=== PATIENT | female | born 1990 | race Caucasian/White ===

== ENCOUNTER 2020-09-12 11:47 | Inpatient (IN) | payer BC ==
[~2020-09-12] VITALS: Ht 165.1 cm; Wt 56.8 kg
[2020-09-12] MEDS ORDERED: LOESTRIN1.5/30 21DAY (13:03)
[2020-09-12] MEDS ORDERED: MOTRIN 200200 MG/TAB PO (13:12)
[2020-09-12 13:46] LABS: HEMATOCRIT 39.8 % (37.0-47.0); HEMOGLOBIN 13.4 g/dl (12.5-16.0); MEAN CELL VOLUME 96 fl (80.0-100.0); MEAN CORPUSCULAR HEMOGLOBIN 32 pg (27.0-31.0); MEAN CORPUSCULAR HGB CONC 34 g/dl (33.0-37.0); MEAN PLATELET VOLUME 10.8 fl (7.4-10.4); PLATELET COUNT 252 K/mm3 (130-400); RED BLOOD COUNT 4.15 M/mm3 (4.10-5.30); REDCELL DISTRIBUTION WIDTH-CV 12.1 % (11.5-14.5)
[2020-09-12 14:01] LABS: ALBUMIN 3.9 gm/dL (3.5-5.0); BILIRUBIN,TOTAL 0.7 mg/dL (0.0-1.0); CALCIUM 8.9 mg/dL (8.4-10.2); CREATININE, serum 1.09 (0.52-1.25); POTASSIUM 3.3 mmol/L (3.4-5.0); TOTAL PROTEIN 7.6 gm/dL (6.4-8.2)
[2020-09-12 14:07] LABS: COLLECTION METHOD CLEAN CATCH
[2020-09-12 14:14] LABS: BAND 30 % (0-10); LYMPHOCYTE 5 % (20.0-51.0); NEUTROPHILS 61 % (42.0-75.2); TOXIC GRANULATION PRESENT
[2020-09-12 14:15] LABS: PLATELET ESTIMATE NORMAL (NORMAL)
[2020-09-12 14:31] LABS: C-REACTIVE PROTEIN 40.6 mg/dL (0.0-0.9)
[2020-09-12 14:39] LABS: MUCOUS Present /lpf; PH 5 (5-8); SQUAMOUS EPITHELIAL 0-2 /hpf; URINE APPEARANCE Cloudy; URINE BACTERIA Rare /hpf; URINE BILIRUBIN Negative (NEGATIVE); URINE BLOOD 1+ (NEGATIVE); URINE COLOR Amber; URINE GLUCOSE Negative (NEGATIVE); URINE KETONE 1+ (NEGATIVE); URINE LEUKOCYTE ESTERASE Trace (NEGATIVE); URINE NITRATE Negative (NEGATIVE); URINE PROTEIN(semi-quant) 3+ (NEGATIVE); URINE UROBILINOGEN >=4.0 mg/dL (NEGATIVE)
--- NOTE | 2020-09-12 17:15 | NUR ---
arrived on unit from emergency department per WC, alert and oriented, full assessment completed, see interventions for further info, is beginning to have shaking and chills, Temp 100.9, medicated with zofran 4mg slow IV as she begins to have nausea when t he shaking begins, denies actual pain but states has achiness all over, medicated with tylenol 650mg po for Temp and achiness, Dr Evans was also in to see patient,
[2020-09-12 17:31] VITALS: BP 116/85; PULSE 119; TEMP 100.9
--- NOTE | 2020-09-12 18:26 | NUR ---
resting in bed, shivering has stopped and she states nausea is starting to subside
--- NOTE | 2020-09-12 18:29 | NUR ---
ground water technician called to notify of her being tachycardic, heart rate in the 130s and up to 140, RACQUEL Brambila notified to possibly change high rate parameter
--- NOTE | 2020-09-12 18:53 | NUR ---
bedside shift report given to WILLIAMS Sargent
[2020-09-12 19:36] VITALS: BP 105/56; PULSE 132; TEMP 99.2
--- NOTE | 2020-09-12 20:48 | NUR ---
PT ASSISTED TO BR. GARY RODRIGUES. PT SAYS SHE FEELS BETTER THAN SHE HAS IN 6 DAYS. TAKING PO FLUIDS BETTER. POTASSIUM INFUSION CONTINUES. TO SINK- BRUSHING TEETH AND WASHING FACE.
[2020-09-12 22:08] VITALS: PULSE 150
--- NOTE | 2020-09-12 22:08 | NUR ---
TELE CALLED. SUSTAINED ST AT 150. CHECKED ON PT. PT VOMITING. SEE MAR FOR PHENERGAN GIVEN. PT WILL TAKE TYLENOL WHEN NAUSEA SUBSIDES. DECLINED TYLENOL SUSPOSITORY AT THIS TIME. WILL CONTINUE TO MONITOR TELE.
[2020-09-12 22:15] VITALS: PULSE 148
[2020-09-12 23:48] VITALS: BP 89/51; PULSE 139; TEMP 102.5; TEMP 99.2
[2020-09-13] VITALS (7 sets, daily range): BP systolic 89–120; BP diastolic 54–69; PULSE 96–134; TEMP 98–103.1
--- NOTE | 2020-09-13 05:45 | NUR ---
PT C/O CHILLING AGAIN AND NAUSEA. SEE MAR FOR PHENERGAN AND TYLENOL. TELE REVEALS HR LOW 100'S.
[2020-09-13 06:42] LABS: MEAN CELL VOLUME 97 fl (80.0-100.0); MEAN CORPUSCULAR HGB CONC 33 g/dl (33.0-37.0); MEAN PLATELET VOLUME 10.9 fl (7.4-10.4); PLATELET COUNT 233 K/mm3 (130-400); RED BLOOD COUNT 3.44 M/mm3 (4.10-5.30); REDCELL DISTRIBUTION WIDTH-CV 12.5 % (11.5-14.5)
[2020-09-13 06:51] LABS: HEMATOCRIT 33.3 % (37.0-47.0); HEMOGLOBIN 10.9 g/dl (12.5-16.0); MEAN CORPUSCULAR HEMOGLOBIN 32 pg (27.0-31.0)
[2020-09-13 06:57] LABS: CALCIUM 7.7 mg/dL (8.4-10.2); CREATININE, serum 0.84 (0.52-1.25); POTASSIUM 4.1 mmol/L (3.4-5.0)
--- NOTE | 2020-09-13 06:59 | NUR ---
bedside shift report received from WILLIAMS Sargent
[2020-09-13 07:25] LABS: C-REACTIVE PROTEIN 38.7 mg/dL (0.0-0.9)
[2020-09-13 07:30] LABS: BAND 18 % (0-10); LYMPHOCYTE 6 % (20.0-51.0); NEUTROPHILS 75 % (42.0-75.2); PLATELET ESTIMATE NORMAL (NORMAL)
[2020-09-13 07:31] LABS: HYPOCHROMIA 1+
--- NOTE | 2020-09-13 07:50 | NUR ---
student nurse Chas asssiting with her care, has completed vital signs and Temp 102, was given Tylenol at shift change, will monitor, states she is tired and is trying to sleep
--- NOTE | 2020-09-13 08:51 | NUR ---
Patient is resting comfortably in bed. Shift assessment completed. Currently denies pain. IVF infusing per order. Call light within reach.
--- NOTE | 2020-09-13 09:20 | NUR ---
awake resting in bed, just states she is still tired, informed her when she was more awake and wanted to get cleaned up to let us know, verbalizes understanding, full assessment completed, have reviewed assessment completed by student nurse and in agreement with her assessment, denies pain or needs
--- NOTE | 2020-09-13 10:30 | NUR ---
resting in bed talking on phone, meagan needs, remains on telemetry and remains tachycardic but is down into the 110s
--- NOTE | 2020-09-13 10:56 | NUR ---
First visit from the elevated motorman. No needs right now.
--- NOTE | 2020-09-13 12:00 | NUR ---
diet changed to general and explained this to her, verbalizes understanding and will review menu
--- NOTE | 2020-09-13 13:00 | NUR ---
called to room by patient and she states she just isn't feeling good again, is having some shivering and stomach upset, Temp 99.3, spoke with student nurse and she administered zofran 4mg slow IV
--- NOTE | 2020-09-13 13:06 | NUR ---
Plan to return home with spouse Mike [phone]. Patient reports that that she resides in [place] with her and has her mother Chica Chang coming into town to support her with her postcare [phone]. Patient indicated that she does not have a PCP but is okay with a referral. Prefers [facility] for RX. Patient reports that she does not have any DME use or DPOA and it would default to her spouse. Patient reports that she has transportation home. Patient does not anticipate any additional needs. Will continue to follow for care. Educated on community supports.
--- NOTE | 2020-09-13 13:26 | NUR ---
bedside shift report given to WILLIAMS Erwin
--- NOTE | 2020-09-13 14:03 | NUR ---
Primary nurse was assisted with [phone] patient care by [facility] student Chas Castro and [facility] instructor Eloise Paul RN-.
--- NOTE | 2020-09-13 15:25 | NUR ---
PT CALLED SAYING SHE WAS HOT AND FELT HER FEVER WAS BACK. WHEN CHECKED IT WAS 103.1 PT WAS GIVEN 650 APAP AT 1520 AND WILL RECHECK IN AN HOUR. WET RAG GIVEN TO COOL OFF AND PT ASSISTED TO BATHROOM.
--- NOTE | 2020-09-13 18:02 | NUR ---
PT'S TEMPERATURE IS DOWN TO 99.7 AT 1730. PT ABLE TO EAT ICE CREAM AND JELLO AND DRINKING WATER WELL. PT REPORTS FATIGUE BUT NOT PAIN. WAS HESITANT TO RECEIVE LOVENOX INJ BUT SAID IT DIDN'T HURT BAD THIS TIME. DISCUSSED WITH MID LEVEL STARTING SCHEDULED APAP TO CONTROL FEVER. WANTS TO BE ABLE TO SEE THE TREND AND IF NECESSARY START ON DIFFERENT ABX.
--- NOTE | 2020-09-13 20:00 | NUR ---
PT C/O CHILLING AND MILD NAUSEA AGAIN. CHECKED TEMP 99.2. SEE MAR FOR TYLENOL AND ZOFRAN GIVEN.
--- NOTE | 2020-09-13 21:10 | NUR ---
TELEMETRY CALLED. HR RATE 130'S. PT HAD JUST GOT UP TO BR. NO DISTRESS.
[2020-09-14] VITALS (9 sets, daily range): BP systolic 103–123; BP diastolic 66–85; PULSE 94–130; TEMP 99.3–102.9
--- NOTE | 2020-09-14 02:35 | NUR ---
TEMP 102.0 DOWN FROM 102.9. BLOOD CULTURES PENDING RESULT THAT WAS OBTAINED FROM 09/12/20. TOOK 1 BLANKET OFF PT FOR NOW.
[2020-09-14 06:26] LABS: MEAN CELL VOLUME 95 fl (80.0-100.0); MEAN CORPUSCULAR HEMOGLOBIN 32 pg (27.0-31.0); MEAN CORPUSCULAR HGB CONC 34 g/dl (33.0-37.0); MEAN PLATELET VOLUME 10.7 fl (7.4-10.4); PLATELET COUNT 287 K/mm3 (130-400); RED BLOOD COUNT 3.44 M/mm3 (4.10-5.30); REDCELL DISTRIBUTION WIDTH-CV 12.5 % (11.5-14.5)
[2020-09-14 06:31] LABS: HEMATOCRIT 32.5 % (37.0-47.0)
[2020-09-14 06:35] LABS: CALCIUM 7.9 mg/dL (8.4-10.2); CREATININE, serum 0.83 (0.52-1.25); POTASSIUM 3.2 mmol/L (3.4-5.0)
[2020-09-14 07:15] LABS: BAND 10 % (0-10); LYMPHOCYTE 6 % (20.0-51.0); NEUTROPHILS 80 % (42.0-75.2); PLATELET ESTIMATE NORMAL (NORMAL)
--- NOTE | 2020-09-14 07:36 | NUR ---
RACQUEL LAMB CALLED AND NOTIFIED THAT THE PATIENTS TEMPERATURE THIS MORNING IS 102.9 AND HER HEART RATE IS 123. STUDENT NURSE ELIESER IS ADMINISTERING TYLENOL FOR FEVER.
--- NOTE | 2020-09-14 08:58 | NUR ---
STUDENT NURSE REPORTS THAT THE PATIENTS TEMPERATURE IS AT 100.7 WHEN RECHECKED AFTER TYLENOL WAS ADMINISTERED THIS MORNING. HOSPITALIST IN WITH PATIENT AT THIS TIME.
--- NOTE | 2020-09-14 10:15 | NUR ---
TAKING OVER PATIENT'S CARE. RECEIVED REPORT FROM WILLIAMS RAMIREZ
--- NOTE | 2020-09-14 14:01 | NUR ---
Primary nurse was assisted with [phone] patient care by [facility] [employer] student Chas Ross and [employer] [employer] instructor Eloise Paul RN-.
--- NOTE | 2020-09-14 16:45 | NUR ---
PATIENT STILL FEELING VERY HOT AFTER RECEIVING TYLENOL. NOTED LOW GRADE TEMP OF 99. APPLIED ICE PACKS TO NECK. PATIENT GIVEN COLD SPRITE. RESTING IN BED. WILL MONITOR.
--- NOTE | 2020-09-14 18:30 | NUR ---
PATIENT CALLED OUT AND REPORTS FEELS SOA WHEN AMBULATING TO BATHROOM. PATIENT REPORTES TELLING THIS AM. PATIENT ALSO EXPERIENCING NOSE BLEED WHICH SHE REPORTS SHE NEVER HAS. HOSPITALIST NOTIFIED.
[2020-09-15] VITALS (8 sets, daily range): BP systolic 112–151; BP diastolic 59–82; PULSE 76–100; TEMP 98–99.7
--- NOTE | 2020-09-15 05:20 | NUR ---
PT RESTING IN BED WITH IV FLUIDS OF NS INFUSING AT 100ML/HR IN R UPPER FA. LAST BAG OF K+ INFUSING AT PRESENT. CALL LIGHT IN REACH.
--- NOTE | 2020-09-15 05:31 | NUR ---
PT RESTING IN BED. IV FLUIDS OF NS INFUSING AT 100ML/HR. TO RADIOLOGY PER W/C FOR CT TO RULE OUT PE. IS TO ROOM. PULLS AROUND 500 PER RT. O2 WAS PLACED AFTER SATS DROPPED TO 85-87%. ON 2 1/2L PER NC AND SATS IN THE MID TO UPPER 90'S. TELE WITH TACHYCARDIA. CALL LIGHT IN REACH.
[2020-09-15 06:17] LABS: BASO % 0.2 % (0.0-2.0); EOS % 0.1 % (0-4.0); GRAN # 12.9 (1.4-6.5); GRAN % 76.6 % (42.2-75.2); HEMOGLOBIN 10.4 g/dl (12.5-16.0); LYMPH # 1.9 (1.2-3.4); LYMPH % 11.5 % (20.0-51.0); MEAN CELL VOLUME 93 fl (80.0-100.0); MEAN CORPUSCULAR HEMOGLOBIN 32 pg (27.0-31.0); MEAN CORPUSCULAR HGB CONC 34 g/dl (33.0-37.0); MEAN PLATELET VOLUME 10.8 fl (7.4-10.4); MONO # 1.5 (0.1-0.6); MONO % 8.9 % (1.7-9.3); PLATELET COUNT 302 K/mm3 (130-400); RED BLOOD COUNT 3.28 M/mm3 (4.10-5.30); REDCELL DISTRIBUTION WIDTH-CV 12.4 % (11.5-14.5)
[2020-09-15 06:29] LABS: HEMATOCRIT 30.5 % (37.0-47.0)
[2020-09-15 06:35] LABS: CALCIUM 7.9 mg/dL (8.4-10.2); CREATININE, serum 0.64 (0.52-1.25); POTASSIUM 3.3 mmol/L (3.4-5.0)
--- NOTE | 2020-09-15 07:20 | NUR ---
Lying in bed with eyes open. Alert and oriented x4. Sits HOB up. Oxygen on at 2L/NC. Patient says that she was short of air in the night but is better at this time. Is connected to the SpO2 machine, asked if she wanted me to disconnect her and the patient says that she would like to stay on it to continue to monitor her levels. Denies pain. Provided applesauce per patient request. Patient says that she has been battling nausea so has not been able to eat, has only had one jd cracker and now will try the applesauce. Denies additional needs or concerns at this time.
--- NOTE | 2020-09-15 09:30 | NUR ---
Patient sister calls for update, she did provide four digit patient code. Update provided. Patient feels like her temp is going up, temp at 99.7 orally. Administer Tylenol as prescribed. Provide ice pack for back of neck. Patient does not want to take the potassium replacement orally and would prefer IV. Will send message to pharmacy to have it changed to IV. Patient denies additional needs at this time.
--- NOTE | 2020-09-15 11:32 | NUR ---
Sitting up in bed with eyes open. Denies pain at this time. No nausea. Does not want to order anything for lunch, says that she may try to eat more at dinner but she is still lacking an appetite. PO fluid intake good. Temp 98.5 orally. Denies needs at this time.
--- NOTE | 2020-09-15 12:44 | NUR ---
Sitting up in bed. Provided chocolate pudding and Sprite per patient request. Patient says that she feels okay at this time. Explain that when the potassium is done infusing we can unhook her from all IV fluids. Patient denies additional needs at this time.
--- NOTE | 2020-09-15 15:17 | NUR ---
Lying in bed on right side. Patient says that she is going to order something for dinner because she is starting to feel hungry, has not had the nausea, and asks what the better options would be. Explain a bland diet and food options with this. Patient agrees. Has been up to bathroom and voiding clear yellow urine. No stools the last couple times she has gone. Patient denies additional needs at this time.
--- NOTE | 2020-09-15 16:47 | NUR ---
Sitting up in bed. Assist patient in getting supper tray over her lap on table. Patient ordered baked potato for supper. Denies additional needs at this time.
--- NOTE | 2020-09-15 17:14 | NUR ---
Sitting up in bed looking at cell phone. Continues to slowly work on eating baked potato. Says that her nausea is doing okay at this time. Denies additional needs.
--- NOTE | 2020-09-15 18:10 | NUR ---
Patient sitting up in bed, continues to work on eating baked potato, has almost ate it all. Denies nausea. Patient having headache and would like Tylenol. Will administer as prescribed. Denies additional needs.
--- NOTE | 2020-09-15 21:57 | NUR ---
PT STATES SHE FEELS BETTER TONIGHT. INT INTACT IN R FA. O2 ON AT 1L/NC WITH SATS 96%. DOES NOT APPEAR PUFFY TONIGHT. STILL SOME SHALLOW BREATHING. USES IS REACHING 1500ML. CALL LIGHT WITHIN REACH.
[2020-09-16 00:02] VITALS: BP 130/77; PULSE 96; TEMP 98.4
[2020-09-16 06:23] LABS: HEMATOCRIT 31.1 % (37.0-47.0); HEMOGLOBIN 10.6 g/dl (12.5-16.0); MEAN CELL VOLUME 93 fl (80.0-100.0); MEAN CORPUSCULAR HEMOGLOBIN 32 pg (27.0-31.0); MEAN CORPUSCULAR HGB CONC 34 g/dl (33.0-37.0); MEAN PLATELET VOLUME 10.5 fl (7.4-10.4); PLATELET COUNT 359 K/mm3 (130-400); RED BLOOD COUNT 3.35 M/mm3 (4.10-5.30); REDCELL DISTRIBUTION WIDTH-CV 12.2 % (11.5-14.5)
[2020-09-16 06:33] LABS: CREATININE, serum 0.62 (0.52-1.25); POTASSIUM 3.1 mmol/L (3.4-5.0)
[2020-09-16 07:12] LABS: BAND 12 % (0-10); EOSINOPHIL 1 % (0-4); LYMPHOCYTE 9 % (20.0-51.0); NEUTROPHILS 67 % (42.0-75.2); PLATELET ESTIMATE NORMAL (NORMAL)
[2020-09-16 08:00] VITALS: BP 124/90; PULSE 73; TEMP 98.2
--- NOTE | 2020-09-16 08:37 | NUR ---
Patient sitting up in bed. She talked to her spouse on the phone. Overall she reports feeling slightly better. She did have low grade higinio this am that broke with tyelnol. Vss on now room air. She tolerated a piece of toast for breakfast, reports her stomach is unsettled, but not exactly nausea. Continues with K+ replacement IV, refused oral K+. Will monitor.
[2020-09-16] MEDS ORDERED: LEVAQUIN 750MG750 M1 PO (09:37)
[2020-09-16] MEDS ORDERED: ZOFRAN 4MG T4 MG/TAB PO (09:38)
--- NOTE | 2020-09-16 11:23 | NUR ---
Patient wanting to try Po K+ replacement and stop IV. She took tab with applesauce. Really encouraged PO intake. She is willing to try a baked potato for lunch. PO zofran did relieve her nasuea. She is still really wanting to get home this afternoon. She is refusing shower.
[2020-09-16 11:40] VITALS: BP 118/83; PULSE 82; TEMP 98.2
--- NOTE | 2020-09-16 13:07 | NUR ---
Patient dressed and ready for discharge. Int DC. Tele off. Vitals stable on room air. Patient tolerated PO potassium. She had a little baked potato and applesauce for lunch. She is aware of the importance of keeping up her PO intake. We reviewed home med list & new medications. 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
== END 2020-09-16 13:49 | disposition home or self-care (01) | DRG 871 ==
LOC: COL.ER 11:47 → JCC 15:21
PROVIDERS: Family Medicine; Nurse Practitioner Primary Care; Physician Assistant; ADMIT Hospitalist
DX: A41.9 Sepsis, unspecified organism (principal); J96.01 Acute respiratory failure with hypoxia; N12 Tubulo-interstitial nephritis, not specified as acute or chronic; J90 Pleural effusion, not elsewhere classified; J98.11 Atelectasis; R19.7 Diarrhea, unspecified; E87.6 Hypokalemia; K80.20 Calculus of gallbladder without cholecystitis without obstruction; Z88.0 Allergy status to penicillin
CPT/HCPCS: 99222-AI; 99232-AI; 99233-AI; 99239; A9284; J0696; J1650; J1885; J1956; J2405; J2550; J3475; J3480; J7030; J7120; Q9967